=== PATIENT | male | born 1985 | race Caucasian/White ===

== ENCOUNTER 2021-10-06 11:18 | Emergency (ER) | payer OTHER ==
[~2021-10-06] VITALS: Ht 175.3 cm; Wt 95.6 kg
[2021-10-06 11:20] VITALS: BP 134/79
[2021-10-06] MEDS ORDERED: ibuprofen PO (11:34)
[2021-10-06] MEDS ORDERED: CEPHALEXIN 500 MG CAP PO ONE (14:35)
[2021-10-06 14:36] LABS: BASO % 0.4 % (0.0-1.0); EOS # 0.1 10^3/uL (0.0-0.5); EOS % 1.2 % (0.0-3.0); HEMATOCRIT 40.8 % (42.0-52.0); HEMOGLOBIN 13.7 g/dl (13.5-17.5); LYMPH # 1.8 10^3/uL (1.5-5.0); LYMPH % 18.1 % (24.0-44.0); MEAN CORPUSCULAR HEMOGLOBIN 32.5 pg (27.0-33.0); MEAN CORPUSCULAR HGB CONC 33.6 g/dl (32.0-36.5); MEAN CORPUSCULAR VOLUME 96.9 fl (80.0-96.0); MONO # 1.1 10^3/uL (0.0-0.8); MONO % 10.8 % (2.0-8.0); NEUTROPHILS # 6.7 10^3/uL (1.5-8.5); NEUTROPHILS % 68.9 % (36.0-66.0); PLATELET COUNT, AUTOMATED 322 10^3/uL (150-450); RED BLOOD COUNT 4.21 10^6/uL (4.30-6.10); WHITE BLOOD COUNT 9.7 10^3/uL (4.0-10.0)
[2021-10-06 14:58] LABS: ERYTHROCYTE SEDIMENTATION RATE 3 mm/hr (0-15)
[2021-10-06] MEDS ORDERED: AMOX875T2 PO (15:51)
== END 2021-10-06 16:15 | disposition home or self-care (01) ==
LOC: M ED 11:18
DX: S61.431A Puncture wound without foreign body of right hand, initial encounter (principal); W22.8XXA Striking against or struck by other objects, initial encounter; Y92.138 Other place on military base as the place of occurrence of the external cause; Y99.1 Military activity